=== PATIENT | female | born 1970 | race African-American/Black ===

== ENCOUNTER 2019-01-24 17:05 | Emergency (ER) | payer BC ==
[~2019-01-24] VITALS: Ht 167.6 cm; Wt 94.3 kg
[2019-01-24] MEDS ORDERED: TRAMADOL HCL 50 MG TAB PO ONE (17:45)
--- NOTE | 2019-01-24 19:09 | Diagnostic Imaging Report ---
Foot complete CPT code: 12421 Indication: Pain for 2 weeks, no history of trauma ^r/o fx ^[id number] ^[id number] Technique: A.P., oblique and lateral views of the left foot obtained. Comparison: None Findings: The area of pain is not indicated or marked. Calcaneus is intact with a small plantar spur. The midfoot is intact. No evidence of displaced fracture or dislocation involving any of the digits. There are no focal osseous lesions. No radiopaque foreign bodies in the soft tissues. IMPRESSION: No evidence of fracture. Small plantar calcaneal spur. Signed by: Dr. Attila Matute MD on 01/24/2019 7:06 PM
[2019-01-24 19:59] VITALS: BP 115/60
== END 2019-01-24 19:45 | disposition home or self-care (01) ==
LOC: ER 17:05
DX: M79.672 Pain in left foot (principal); M72.2 Plantar fascial fibromatosis
CPT/HCPCS: 99283

== ENCOUNTER 2019-02-14 10:22 | Emergency (ER) | payer BC ==
[~2019-02-14] VITALS: Ht 167.6 cm; Wt 94.3 kg
[2019-02-14] MEDS ORDERED: CLINDAMYCIN PHOS 600 MG/ 4 ML VIAL IM ONE (11:00)
[2019-02-14] MEDS ORDERED: TRAMADOL HCL 50 MG TAB PO ONE (11:15)
[2019-02-14] MEDS ORDERED: LIDOCAINE VISC 2% SOLN 15 ML UDC PO ONE (11:15)
--- NOTE | 2019-02-14 11:37 | NUR ---
im med given and pt toelrated well.
== END 2019-02-14 12:23 | disposition home or self-care (01) ==
LOC: ER 10:22
DX: K04.7 Periapical abscess without sinus (principal); K02.9 Dental caries, unspecified
CPT/HCPCS: 99283